=== PATIENT | male | born 1955 | race Caucasian/White ===

== ENCOUNTER → 2017-04-03 | Outpatient (CLI) | payer OTHER, BC ==
--- NOTE | 2017-04-03 22:22 | DI ---
MRI RIGHT SHOULDER SCAN, 04/03/2017 10:45 AM: Clinical History: Right shoulder pain. Previous Exam: None at this facility. Technique: Axial, coronal, and sagittal fat saturated PD; axial gradient FE; coronal fat saturatedT2 weighted; sagittal T2 weighted. There is no soft tissue edema. There is fluid in the subacromion space as well as a small joint effus ion. The patient is status post resection of the lateral head of the right clavicle and there is flui d in the former AC joint space. There is a type II acromion. The patient is status post biceps tendon tenodesis. The patient has had a previous repair of the supraspinatus tendon, the conjoined tendon, and the infraspinatus tendon. There are no full-thickness tears of the supraspinatus and conjoined te ndons. The tears measure approximately 10 mm in transverse dimension by 30 mm in AP dimension. There is an articular surface partial-thickness tear of the subscapularis tendon measuring approximately 12 mm in transverse by 2 mm in AP dimension. Severe tendinosis is associated with the subscapularis tea r. The teres minor tendon is normal. There is a type II SLAP tear extending posteriorly from the 12:0 0 position into the posterosuperior quadrant. The articular surfaces of the humeral head in the gleno id fossa are intact. There is diffuse muscle atrophy with fatty streaks in the muscles representing a Goutallier grade 1 muscle atrophy. Readin. Full-thickness tears are present in the supraspinatus and conjoined tendons measuring 10 x 30 mm in transverse and AP dimension. The patient probably has had these tendons repaired previously. There is an articular surface partial-thickness tear of the subscapularis tendon measuring 12 x 2 mm in tr ansverse and AP dimension. There is severe tendinosis of the subscapularis tendon. Status post biceps tendon tenodesis. Status post resection of the lateral head of the clavicle. There is a type II SLAP tear with posterior extension into the posterosuperior quadrant. There is a diffuse grade 1 Goutalli er muscle atrophy present. 2. The teres minor tendon and the articular surfaces of the glenoid fossa and humeral head are intac t. There is a type II acromion.
== END ==
LOC: MRI 10:43
PROVIDERS: ATTEND Family Medicine
DX: M25.511 Pain in right shoulder (principal); S43.431A Superior glenoid labrum lesion of right shoulder, initial encounter; M62.58 Muscle wasting and atrophy, not elsewhere classified, other site; S46.811A Strain of other muscles, fascia and tendons at shoulder and upper arm level, right arm, initial encounter
CPT/HCPCS: 73221

== ENCOUNTER 2017-05-14 05:47 | Day surgery (SDC) | payer OTHER, BC ==
[2017-05-14] MEDS ORDERED: LIDOCAINE W/ SODIUM BICARB 0.5 ML SYR ONE (06:02)
[2017-05-14] MEDS ORDERED: ceFAZolin Inj 2gm (Premix) 50 ML IV ONE (06:02)
[2017-05-14] MEDS ORDERED: Lactated Ringers 1,000 ML PRIMARY IV ONE ×2 (06:02→10:33)
[2017-05-14] MEDS ORDERED: Ropivacaine 0.2% VIAL 20 ML ONE (06:53)
[2017-05-14] MEDS ORDERED: EPINEPHrine Inj (1:1,000) 30mg/30ml vial ONE (06:53)
[2017-05-14] MEDS ORDERED: MEPIVACAINE HCL/PF 20 MG/1 ML IV ONE (07:13)
[2017-05-14] MEDS ORDERED: MIDAZOLAM 5 MG/1 ML ONE (07:13)
[2017-05-14] MEDS ORDERED: fentaNYL Inj 250 MCG/5 ML VIAL ONE (07:14)
[2017-05-14] MEDS ORDERED: BUPIVACAINE 0.5% W/EPI MPF -30 ML VIAL IV ONE (07:14)
[2017-05-14] MEDS ORDERED: DEXAMETHASONE PF 10 MG/1 ML VIAL ONE (07:14)
[2017-05-14] MEDS ORDERED: LIDOCAINE MPF 2% - 5 ML (20 MG/1 ML) ONE (07:45)
[2017-05-14] MEDS ORDERED: HYDROmorphone 2 MG/1 ML IVP PRN ×2 (08:51→11:41)
[2017-05-14] MEDS ORDERED: Ondansetron ODT Tab 8 MG TAB PO PRN ×2 (08:51→11:41)
[2017-05-14] MEDS ORDERED: ATROPINE SULFATE 0.4 MG/1 ML VIAL IVP PRN (08:51)
[2017-05-14] MEDS ORDERED: ONDANSETRON 4 MG/2 ML VIAL IVP PRN ×2 (08:51→11:41)
[2017-05-14] MEDS ORDERED: fentaNYL Inj 100 MCG/2 ML VIAL IVP PRN (08:51)
[2017-05-14] MEDS ORDERED: NORMAL SALINE 10 ML SYRINGE FLUSH IVP PRN ×2 (08:51→11:41)
--- NOTE | 2017-05-14 08:51 | CRNA.PROCE ---
Nerve Block Documentation - - Safety Measures: Time Out Taken, Site Verified - - Type of Nerve Block Used: Right Interscalene Block (Analgesic block for post shoulder procedure analgesia.) Position for Nerve Block: Supine Moniters Used During Block: EKG, SPO2, NIBP Oxygen Sumpplented: Yes Sedation Used - Enter Amount in Comment Field: Midazolam (mg): Yes (2), Fentanyl (mcg): Yes (50) Skin Prep Used: ChloroPrep (Times 2) Draped: No Technique: Nerve Stimulator Nerve Block Needle Used: 40 mm ProBlk II Stimulation Hz: 1 Stimulation Staring mA: 1.6 Stimulation Ending mA: 0.6 Local Anesthetic - Enter Amt in Comment Field: 0.5 % Bupivicaine with Epinephrine 1:200,000 (mL): Yes (20), 2 % Mepivacaine (mL): Yes (10 ) Additives to Nerve Blocks: Dexamethasone (mg): Yes (10)
[2017-05-14] MEDS ORDERED: Lactated Ringers 1,000 ML PRIMARY IV SCH ×2 (09:00→11:45)
[2017-05-14] MEDS ORDERED: GLYCOPYRROLATE 0.2 MG/1 ML VIAL ONE (09:00)
[2017-05-14] MEDS ORDERED: ePHEDrine Inj 50 MG/ML AMP ONE (09:02)
[2017-05-14] MEDS ORDERED: diphenhydrAMINE 25 MG CAPSULE PO PRN (11:41)
[2017-05-14] MEDS ORDERED: Prochlorperazine Tab 10 MG TAB PO PRN (11:41)
[2017-05-14] MEDS ORDERED: CALCIUM CARBONATE 500 MG (TUMS) CHEWABLE TABLET PO PRN (11:41)
[2017-05-14] MEDS ORDERED: ACETAMINOPHEN 325 MG TABLET PO PRN (11:41)
[2017-05-14] MEDS ORDERED: MAG HYDROX/AL HYDROX/SIMETH 30 ML SUSP PO PRN (11:41)
[2017-05-14] MEDS ORDERED: BISACODYL 5 MG TABLET PO PRN (11:41)
[2017-05-14] MEDS ORDERED: BISACODYL 10 MG SUPPOSITORY RECTAL PRN (11:41)
[2017-05-14] MEDS ORDERED: IBUPROFEN 400 MG TABLET PO PRN (11:41)
[2017-05-14] MEDS ORDERED: KETOROLAC 30 MG/1 ML VIAL ONE (11:50)
[2017-05-14] MEDS ORDERED: HYDROmorphone 2 MG/1 ML ONE (12:06)
[2017-05-14] MEDS ORDERED: HYDROcodone-APAP 10 MG-325 MG TABLET PO ONE ×2 (12:44→14:49)
[2017-05-14] MEDS: HYDROcodone-APAP 10 MG-325 MG TABLET PO PRN ×2 (12:50→15:00)
[2017-05-14 14:14] VITALS: RESP 16
[2017-05-14 15:52] VITALS: TEMP 97.8
--- NOTE | 2017-05-14 16:55 | OPS SHOULD ---
Diagnosis : Right Rotator Cuff Repair/Biceps Referral Reason: Shoulder Cryo Cuff/Activities of Daily Living O: The patient was instructed in activities of daily living including dressing and bathing, as well as shoulder do's and don'ts. The patient was issued a cryo cuff for the right shoulder and instructed in its proper use and care. P: No further therapy is indicated at this time. The patient will begin outpatient physical therapy. CHRISTA
== END 2017-05-14 15:40 | disposition home or self-care (01) ==
LOC: SDSC 05:47
PROVIDERS: ATTEND Orthopaedic Surgery
DX: M75.121 Complete rotator cuff tear or rupture of right shoulder, not specified as traumatic (principal); M75.41 Impingement syndrome of right shoulder; M19.011 Primary osteoarthritis, right shoulder; S43.81XA Sprain of other specified parts of right shoulder girdle, initial encounter; S46.211A Strain of muscle, fascia and tendon of other parts of biceps, right arm, initial encounter
CPT/HCPCS: 23430; 29823; 29824; 29826; 29827; 97535; J0171; J0670; J0690; J1100; J1170; J1885; J2001; J2250; J2704; J2795; J3010; S0020; J7120